=== PATIENT | male | born 1970 | race Caucasian/White ===

== ENCOUNTER 2017-02-06 22:00 | Emergency (ER) | payer OTHER ==
[~2017-02-06] VITALS: Ht 172.7 cm; Wt 98.0 kg
[2017-02-06 22:29] VITALS: BP 113/60
--- NOTE | 2017-02-06 23:47 | NUR ---
Patient to [facility].
--- NOTE | 2017-02-07 00:06 | NUR ---
Patient ambulated to bed 08.
--- NOTE | 2017-02-07 00:10 | NUR ---
BODYACHES, SINCE TUESDAY , SORETHROAT, GEN WEAKNESS. PAIN SCALE OF 8/10. ERMD MADE AWARE.
--- NOTE | 2017-02-07 00:26 | NUR ---
Dr. Dickson evaluating patient at bedside.
--- NOTE | 2017-02-07 00:55 | NUR ---
XRAY at bedside.
--- NOTE | 2017-02-07 01:36 | NUR ---
Phillip kirby in [facility] - 02/07/17 at 0139 by JOSE PT TAKEN TO CT BY CIRCUIT BOARD REPAIR TECHNICIAN VIA WHEELCHAIR
[2017-02-07] MEDS ORDERED: ACETAMINOPHEN EXTRA STRENGTH 500 MG TAB PO ONE (01:45)
--- NOTE | 2017-02-07 01:45 | NUR ---
T = 100.0 DR. MEDEIROS NOTIFIED. COOLING MEASURES APPLIED. WILL FOLLOW UP ORDERS.
--- NOTE | 2017-02-07 02:18 | NUR ---
T = 98.7.
[2017-02-07 02:35] VITALS: BP 118/80
--- NOTE | 2017-02-07 02:35 | NUR ---
Patient discharged with v/s stable. Written and verbal after care instructions given and explained. Patient alert, oriented and verbalized understanding of instructions. Ambulatory with steady gait. All questions addressed prior to discharge. ID band removed. Patient advised to follow up with PMD. Rx of LEVAQUIN 750MG TAB, 1 TAB ONCE A DAY BY MOUTH given. Patient educated on indication of medication including possible reaction and side effects. Opportunity to ask questions provided and answered.
== END 2017-02-07 02:35 | disposition home or self-care (01) ==
LOC: MED 22:00
DX: R50.9 Fever, unspecified (principal); D72.829 Elevated white blood cell count, unspecified; M25.572 Pain in left ankle and joints of left foot; J45.909 Unspecified asthma, uncomplicated; K21.9 Gastro-esophageal reflux disease without esophagitis; M10.9 Gout, unspecified
CPT/HCPCS: 36415; 71010; 80053; 81001; 83605; 85025; 87040; 99285; Q0092